=== PATIENT | female | born 2000 | race Caucasian/White ===

== ENCOUNTER 2018-06-16 17:21 | Inpatient (IN) | payer BC, MEDICAID ==
--- NOTE | 2018-06-16 17:46 | ED ---
Psychiatric Complaint - HPI Summary HPI Summary: This pt is a 18 y/o female presenting to [facility] c/o depression, worsening over the past few weeks. Pt states that she has been "sad" for a long time now. Pt admits to SI thoughts. Denies SI plan, HI thoughts/plan. Denies any recent stressors. Pt states she has been sleeping more than usual. She has been eating a bit less lately as pt is getting over the flu. Pt admits to drug and alcohol use. The last time she drank alcohol was 2 days ago. Pt states she smokes marijuana almost every day. Additionally yesterday pt used Adderall and Vyvanse and the day before she used Xanax and cocaine. Denies any PMHx. Pt is not on any medications. - History Of Current Complaint Chief Complaint: [facility]MentalHealth Time Seen by Provider: 06/16/18 17:39 Hx Obtained From: Patient Onset/Duration: Lasting Weeks, Still Present, Worse Since - the last few weeks Timing: Weeks Severity Currently: Moderate Character: Depressed Aggravating Factor(s): Nothing Alleviating Factor(s): Nothing Has Suicidal: Reports: Thoughts. Denies: With A Plan Has Homicidal: Denies: Thoughts, With A Plan - Allergies/Home Medications Allergies/Adverse Reactions: Allergies Allergy/AdvReac Type Severity Reaction Status Date / Time No Known Allergies Allergy Verified 06/16/18 17:29 Home Medications: Home Medications Azithromyxin YOAN (NF) [Z-Yoan (Zithromax) 250 mg tabs #6] 2 tab PO .TODAY, THEN 1 DAILY 06/16/18 [History Confirmed 06/16/18] PMH/Surg Hx/FS Hx/Imm Hx Respiratory History: Denies: Hx Asthma Sensory History: Denies: Hx Contacts or Glasses, Hx Hearing Aid Opthamlomology History: Denies: Hx Contacts or Glasses - Surgical History Surgery Procedure, Year, and Place: [place] teeth removal. Surgery on eyelids Infectious Disease History: No Infectious Disease History: Denies: Traveled Outside the [place] in Last 30 Days - Family History Family History: FHx of migraines. - Social History Alcohol Use: Occasionally Substance Use Type: Reports: Cocaine, Marijuana Substance Use Comment - Amount & Last Used: Adderall, Xanax Smoking Status (MU): Never Smoked Tobacco Review of Systems Negative: Fever, Chills Cardiovascular: Negative Respiratory: Negative Gastrointestinal: Negative Genitourinary: Negative Psychological: Other - POS: SI thoughts Positive: Depressed. Negative: Other - NEG: SI plan, HI thoughts/plan All Other Systems Reviewed And Are Negative: Yes Physical Exam - Summary Physical Exam Summary: VITAL SIGNS: Reviewed. GENERAL: Patient is a well-developed and nourished female who is lying comfortable in the stretcher. Patient is not in any acute respiratory distress. HEAD AND FACE: No signs of trauma. No ecchymosis, hematomas or skull depressions. No sinus tenderness. EYES: PERRLA, EOMI x 2, No injected conjunctiva, no nystagmus. EARS: Hearing grossly intact. Ear canals and tympanic membranes are within normal limits. MOUTH: Oropharynx within normal limits. NECK: Supple, trachea is midline, no adenopathy, no JVD, no carotid bruit, no c- spine tenderness, neck with full ROM. CHEST: Symmetric, no tenderness at palpation LUNGS: Clear to auscultation bilaterally. No wheezing or crackles. CVS: Regular rate and rhythm, S1 and S2 present, no murmurs or gallops appreciated. ABDOMEN: Soft, non-tender. No signs of distention. No rebound, no guarding, and no masses palpated. Bowel sounds are normal. EXTREMITIES: FROM in all major joints, no edema, no cyanosis or clubbing. NEURO: Alert and oriented x 3. No acute neurological deficits. Speech is normal and follows commands. SKIN: Dry and warm Triage Information Reviewed: Yes Vital Signs On Initial Exam: Initial Vitals Temp Pulse Resp BP Pulse Ox 98.7 F 105 16 156/90 97 06/16/18 17:22 06/16/18 17:22 06/16/18 17:22 06/16/18 17:22 06/16/18 17:22 Vital Signs Reviewed: Yes Diagnostics - Vital Signs Vital Signs Temp Pulse Resp BP Pulse Ox 06/16/18 17:22 98.7 F 105 16 156/90 97 - Laboratory Result Diagrams: 06/16/18 18:05 06/16/18 18:05 Lab Statement: Any lab studies that have been ordered have been reviewed, and results considered in the medical decision making process. Re-Evaluation - Re-Evaluation First Eval Re-Evaluation Time: 17:46 Comment: Pt is medically cleared. Course/Dx - Course Assessment/Plan: This pt is a 18 y/o female presenting to [facility] c/o depression, worsening over the past few weeks. Pt states that she has been "sad" for a long time now. Pt admits to SI thoughts. Denies SI plan, HI thoughts/plan. Denies any recent stressors. Pt states she has been sleeping more than usual. She has been eating a bit less lately as pt is getting over the flu. Pt admits to drug and alcohol use. The last time she drank alcohol was 2 days ago. Pt states she smokes marijuana almost every day. Additionally yesterday pt used Adderall and Vyvanse and the day before she used Xanax and cocaine. Denies any PMHx. Pt is not on any medications. Blood work w/o significant abnormality. She is medically cleared. She is awaiting for a MHE. Patient is hemodynamically stable and A+O x 3. Shell be signed out to Dr. Klein, the next ER attending, pending MHE and disposition. - Differential Dx/Clinical Impression Differential Diagnosis/HQI/PQRI: Positive: Anxiety, Depression, Suicidal Ideation Provider Diagnosis: Depression Discharge - Sign-Out/Discharge Documenting (check all that apply): Sign-Out Patient Signing out patient TO: Eliza Klein - pending MHE - Discharge Plan Condition: Stable Referrals: Fer Finney MD [Medical Doctor] - - Billing Disposition and Condition Condition: STABLE - Attestation Statements Document Initiated by Scribe: Yes Documenting Scribe: Alicia Spicer Provider For Whom Tom is Documenting (Include Credential): Bryan Dover MD Scribe Attestation: Alicia Sibley, scribed for Bryan Dover MD on 06/16/18 at 1855. Scribe Documentation Reviewed: Yes Provider Attestation: The documentation as recorded by the Alicia tian accurately reflects the service I personally performed and the decisions made by me, Bryan Dvoer MD
[2018-06-16 18:22] LABS: ABS Basophils 0 10^3/ul (0-0.2); ABS Eosinophils 0.1 10^3/ul (0-0.6); ABS Lymphocytes 1.8 10^3/ul (1.0-4.8); ABS Monocytes 0.6 10^3/ul (0-0.8); ABS Neutrophils 4.9 10^3/ul (1.5-7.7); ABS Nucleated RBC 0 10^3/ul; Eosinophil % 1.1 % (0-6); Hematocrit 41 % (35-47); Hemoglobin 14.1 g/dl (12.0-16.0); Lymphocyte % 24.3 % (25-47); Mean Corpuscular HGB Conc 34 g/dl (31-36); Mean Corpuscular Hemoglobin 31 pg (27-31); Mean Corpuscular Volume 90 fL (80-97); Mean Platelet Volume 6.5 fL (7.4-10.4); Nucleated Red Blood Cells % 0; Platelet Count 399 10^3/ul (150-450); Red Cell Distribution Width 13 % (10.5-15); White Blood Count 7.5 10^3/ul (3.5-10.8)
[2018-06-16 18:51] LABS: EGFR Non-African American 118.3 (>60)
[2018-06-16 18:54] LABS: Urine Color Yellow
[2018-06-16 18:55] LABS: Urine Appearance Clear; Urine Blood Negative (Negative); Urine Ketones Negative (Negative); Urine Protein 1+(30 mg/dL) (Negative); Urine Specific Gravity 1.035 (1.010-1.030); Urine Urobilinogen Negative (Negative)
--- NOTE | 2018-06-16 19:05 | ED ---
Re-Evaluation - Re-Evaluation First Eval Re-Evaluation Time: 17:46 Comment: Pt is medically cleared. Course/Dx - Diagnoses Provider Diagnoses: Substance induced mood disorder - Provider Notifications Discussed Care Of Patient With: Cachorro Casarez Time Discussed With Above Provider: 00:15 Instructed by Provider To: Other - Per AMBER Garcia, pt to be admitted to [facility]; involuntary status with dx substance induced mood disorder. Discharge - Sign-Out/Discharge Documenting (check all that apply): Patient Departure - admit, Receiving Sign- Out Receiving patient FROM: Bryan Dover - Discharge Plan Condition: Stable Disposition: PSYCHIATRIC FACILITY-[facility] Referrals: Fer Finney MD [Medical Doctor] - - Attestation Statements Document Initiated by Scribe: Yes Documenting Scribe: Christopher Hinds Provider For Whom Scribe is Documenting (Include Credential): Dr. Eliza Klein MD Scribe Attestation: Christopher Sibley, scribed for Dr. Eliza Klein MD on 06/17/18 at 0014.
[2018-06-17] MEDS ORDERED: chlorproMAZINE TAB* 50 MG PO PRN (00:05)
[2018-06-17] MEDS ORDERED: Al Hydrox/Mg Hydrox/Simet LIQ* 30 ML UDC PO PRN (01:54)
[2018-06-17] MEDS ORDERED: Nicotine GUM* 2 MG PO PRN (01:54)
[2018-06-17] MEDS ORDERED: Mouth Piece, Nicotine* 1 EACH CARTRIDGE INH SCH (01:54)
[2018-06-17] MEDS ORDERED: Acetaminophen TAB* 325 MG PO PRN (01:54)
[2018-06-17] MEDS ORDERED: Nicotine Inhaler* 10 MG AMP INH PRN (01:54)
[2018-06-17] MEDS: Vitamin THERAPEUTIC TAB PO SCH (08:53)
[2018-06-17] MEDS ORDERED: diPHENhydraMINE PO* 50 MG PO PRN (11:26)
[2018-06-17] MEDS: FLUoxetine CAP* 20 MG PO SCH (13:20)
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
[2018-06-18] MEDS: FLUoxetine CAP* 20 MG PO SCH (09:17)
[2018-06-18] MEDS: Vitamin THERAPEUTIC TAB PO SCH (09:17)
--- NOTE | 2018-06-18 15:29 | PN ---
Subjective - Subjective Date of Service: 06/18/18 Service Type: 71543 Hosp care 15 min low complexity Subjective: Patient reports feeling "a lot better!" Patient reports initial nausea and brief period of blurry vision yesterday, denies side effects today. He reports gaining much from admission due to programming. 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 He reports sleeping well last night. Patient states that his boyfriend has visited and is supportive. Patient denies urges or cravings to use substances. He states intent to avoid "alliance party drugs" and decrease use of marijuana. Objective - Appearance Appearance: Well Developed/Nourished Dysmorphic Features: Yes Hygiene: Normal Grooming: Well Kept - Behavior Psychomotor Activities: Normal Exhibits Abnormal Movement: No - Attitude and Relatedness Attitude and Relatedness: Cooperative Eye Contact: Good - Speech Quality: Unpressured Latencies: Normal Quantity: Appropriate - Mood Patient's Decription of Mood: "better" - Affect Observed Affect: Good Affect Consistent with: Euthymia - Thought Process Patient's Thought Process: Coherent, Goal Directed Thought Content: Yes Passive Wish, No Suicidal Planning, No Homicidal Ideation, No Paranoid Ideation - Sensorium Experiencing Hallucinations: No, Sensorium is Clear Type of Hallucinations: Visual: No, Auditory: No, Command: No - Level of Consciousness Level of Consciousness: Alert Orientation: Yes Intact, Yes Orientated to Time, Yes Orientated to Place, Yes Orientated to Person - Impulse Control Impulse Control: Intact - Insight and Judgement Insight and Judgement: Fair - Group Participation Particating in Group Activities: Yes - Medication Management Medication Management Adherence: Yes Assessment - Assessment Merits Inpatient Hospitalization: For Immediate Safety, For Stabilization, For Discharge Planning Inpatient DSM-V Dx: F33.1 Clinical Impression: 18yo white transgendered female to male, domiciled, employed who presented to ED with reports of increased depression and suicidal ideation. He has been engaging in much substance use including marijuana, cocaine, LSD and prescription medications. He is agreeable to inpatient psychiatric treatment and gives consent to start an SSRI. His insight into impact of substance use is poor at this time. Patient merits hospitalization for immediate safety and stabilization. MHU: Problem List - Patient Problems (1) MDD (major depressive disorder), recurrent episode, moderate Current Visit: Yes Status: Acute Priority: High Code(s): F33.1 - MAJOR DEPRESSIVE DISORDER, RECURRENT, MODERATE SNOMED Code(s): 601753770 Comment: continue milieu programming and trial SSRI Plan - Plan Treatment Plan: Name: CLARK ALLISON Birthdate: 2000 [id number] continue acute intensive psychiatric treatment. may decrease to q30min observation and allow staff pass. continue fluoxetine. dc planning to include referrals to outpatient providers. Continued Medication Management: Start Medication Medications: Current Medications Acetaminophen (Tylenol Tab*) 650 mg PO Q4H PRN PRN Reason: PAIN or TEMP > 101 F Al Hydrox/Mg Hydrox/Simethicone (Maalox Plus*) 30 ml PO Q4H PRN PRN Reason: INDIGESTION Chlorpromazine HCl (Thorazine Tab*) 50 mg PO ONCE PRN PRN Reason: ANXIETY/AGITATION Device (Nicotine Mouth Piece*) 1 each INH .[facility] Last Admin: 06/17/18 08:10 Dose: 1 each Diphenhydramine HCl (Benadryl Po*) 50 mg PO BEDTIME PRN PRN Reason: INSOMNIA Fluoxetine HCl (Prozac Cap*) 20 mg PO DAILY [facility] Last Admin: 06/18/18 09:17 Dose: 20 mg Multivitamins (Theragran Tab*) 1 tab PO DAILY [facility] Last Admin: 06/18/18 09:17 Dose: 1 tab Nicotine (Nicotine Inhaler*) 10 mg INH Q2H PRN PRN Reason: CRAVING Last Admin: 06/17/18 08:10 Dose: 10 mg Nicotine Polacrilex (Nicotine Gum*) 2 mg PO Q2H PRN PRN Reason: CRAVING - Discharge Plan Discharge Plan: Outpatient Follow Up Outpatient Program: [facility]
[2018-06-19 08:05] VITALS: BP 115/68
[2018-06-19] MEDS: FLUoxetine CAP* 20 MG PO SCH (09:37)
[2018-06-19] MEDS: Vitamin THERAPEUTIC TAB PO SCH (09:37)
--- NOTE | 2018-06-20 09:04 | DS ---
CC: [facility].* DISCHARGE SUMMARY: DATE OF ADMISSION: 06/17/18 DATE OF DISCHARGE: 06/19/18 SUPERVISING PSYCHIATRIST: Dr. Madan Oswald.* (DICTATED BY RUBENS MCWILLIAMS NP) DISCHARGE DIAGNOSES: 1. Major depressive disorder. 2. Amphetamine abuse. 3. Benzodiazepine abuse. 4. Cannabis use disorder. 5. Cocaine abuse. CONDITION AT THE TIME OF DISCHARGE: Improved. The patient is euthymic with bright affect. He has been increased to 30 minute observation and been safe on all checks. He reports much improvement in mood and sleep. He denies suicidal ideations. We discussed safety planning and medication safety. He reports desire for discharge today. He is agreeable to follow up with outpatient mental health. He has also been given information about primary care referral and encouraged to call the MHU if he has any questions after discharge. The patient declines offer of referrals for substance use treatment. He declines offer of medications for substance use. He states he intends to decrease marijuana use and abstain from "green party drugs." MENTAL STATUS EXAM: Wesley is a transgender female to male, who is noted to have mild facial hair. He is well groomed and wearing his own casual clothing. The patient has good posture and is cooperative with interview. The patient is alert and oriented x3. Eye contact is good. Speech is soft and articulate. Mood is euthymic with bright affect. No abnormal psychomotor activity noted. Thought process is logical, goal-directed and coherent. Thought content is negative for suicidal ideation. The patient denies intrusive images, AH, VH, or delusions. Insight and judgement are good and that he has stabilized on the psychiatric unit and wishes to return home with his support network. The patient appears to have an average intelligence as evidenced by educational attainment and vocabulary. INSTRUCTIONS GIVEN TO THE PATIENT: A. Medications: Fluoxetine 20 mg p.o. daily. This is electronically prescribed to . B. Diet is regular. C. Activity: Ambulation as tolerated. Tobacco cessation was declined by patient. There are no pending labs or diagnostic studies. D. Follow-up care: [facility] with an intake on Friday, at 9:45. The patient was encouraged to establish primary care and given the information for the [facility] referral line. He has also been a patient of [facility] in the past and states understanding of how to follow up should he want to return there. E. Substance use followup. The patient declined offer of referrals for substance use treatment or medication for substance use disorders. HOSPITAL COURSE: Part A: Reason for admission: The patient presented to the emergency department with reports of increased depression, intrusive thoughts of suicide and polysubstance use. While in the emergency department, he had blood work done. CBC was grossly unremarkable. CMP within normal limits. TSH 1.0. Urinalysis within normal limits. Toxicology positive for amphetamines, benzodiazepines, cocaine, and cannabinoids. Negative for salicylates, acetaminophen, or alcohol. Part B: Psychiatric treatment rendered: The patient was admitted to adult behavioral services unit on voluntary status. Code status is full. He was placed on 15-minute checks for safety and this was decreased to 30-minute observation. The patient participated in supportive milieu, psycho-educational groups and individual sessions with staff. He completed an MMPI, which endorsed depressive disorder. Please see consultation report by a psychologist , Dr. Beny Lam. The patient was agreeable to try an antidepressant and was started on fluoxetine 20 mg. He reported mild nausea and blurry vision after first dose, denied any side effects after that time. The patient was receptive to therapeutic information and suggestions. 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 The patient was visited by his boyfriend who was noted to be supportive. At the time of discharge, risks for harm to self was lessened due to stabilization. Due to obligation to treat in least restrictive setting, the patient was prepared for discharge. RUBENS MCWILLIAMS, GRACE [id number]/[facility] #: [id number] LIBIA
== END 2018-06-19 12:50 | disposition home or self-care (01) | DRG 751 ==
LOC: ED 17:21 → BSU 06-17 00:05
PROVIDERS: ADMIT Psychiatry & Neurology Psychiatry; ATTEND Psychiatry & Neurology Psychiatry
DX: F33.1 Major depressive disorder, recurrent, moderate (principal); R45.851 Suicidal ideations; F64.9 Gender identity disorder, unspecified; G47.00 Insomnia, unspecified; F14.10 Cocaine abuse, uncomplicated; F12.10 Cannabis abuse, uncomplicated; F15.10 Other stimulant abuse, uncomplicated; F19.10 Other psychoactive substance abuse, uncomplicated; F16.10 Hallucinogen abuse, uncomplicated; Z72.89 Other problems related to lifestyle; Z87.890 Personal history of sex reassignment; Z72.0 Tobacco use
CPT/HCPCS: 36415; 80053; 80061; 80307; 80320; 80329; 81003; 81015; 83036; 84443; 85025; 99222; 99231; 99238; 99284; A9270-GY; G0480

== ENCOUNTER → 2018-07-22 13:20 | Emergency (ER) | payer MEDICAID, OTHER ==
[2018-07-22 14:03] LABS: ABS Basophils 0 10^3/ul (0-0.2); ABS Eosinophils 0.1 10^3/ul (0-0.6); ABS Lymphocytes 1.5 10^3/ul (1.0-4.8); ABS Monocytes 0.6 10^3/ul (0-0.8); ABS Neutrophils 3.8 10^3/ul (1.5-7.7); ABS Nucleated RBC 0 10^3/ul; Eosinophil % 1.1 %; Hematocrit 41 % (35-47); Hemoglobin 14.1 g/dl (12.0-16.0); Lymphocyte % 25.1 %; Mean Corpuscular HGB Conc 35 g/dl (31-36); Mean Corpuscular Hemoglobin 31 pg (27-31); Mean Corpuscular Volume 90 fL (80-97); Mean Platelet Volume 6.8 fL (7.4-10.4); Nucleated Red Blood Cells % 0.1; Platelet Count 277 10^3/ul (150-450); Red Blood Count 4.55 10^6/ul (4.00-5.40); Red Cell Distribution Width 13 % (10.5-15)
--- OUTSIDE RECORDS SUMMARY | 2018-07-22 14:06 | XMS REPORT | Continuity of Care Document ---
:2000 External Reference #:[id number] Author Name Gilberto Kat Care Team Providers Name Role Phone James Maza M.D. Care Team Information Vacation Guide Unavailable Payers Type Date Identification Numbers Payment Provider Subscriber Policy Number: [id number] Medicaid [place] Wesley Nava PayID: [id number] [address] [place] [address] Advance Directives Description No Information Available Problems Date Description Provider Status Onset: 07/08/2018 Nchafs-ta-glda transsexual ARCADIO Kurtz Active Family History Date Family Member(s) Problem(s) Comments Father A&W Mother A&W Children None Siblings 1 First Sister A&W Paternal Grandfather due to Unknown Causes () Paternal Grandmother A&W Maternal Grandfather Prostate Cancer Maternal Grandmother Multiple Sclerosis (MS) Maternal Grandmother Diabetes Social History Type Date Description Comments Sex Unknown Education Highest level completed, 12th grade Marital Status but Lives With Boyfriend Boyfriends Mom and siblings Pets 1 dog Pets several cats Cigarette Use Former Cigarette Smoker 2 years on and off 1/2 Pack Daily ETOH Use Alcohol Use Prior To 2 per week Recreational Drug Use Formerly used Marijuana occ LSD, cocaine, regularly adderall, xanax Tobacco Use Start: Unknown Patient is a former End: Unknown smoker Smoking Status Reviewed: 07/08/18 Patient is a former smoker Exercise Type/Frequency Exercises sporadically Seat Belt/Car Seat Always uses seat belt Currently Active Patient is currently sexually active Contraceptive Methods None STD's Chlamydia Allergies, Adverse Reactions, Alerts Description No Known Drug Allergies Medications Medication Date Status Form Strength Qnty SIG Indications Ordering Provider Prozac Active Unknown Vitamins Active Unknown Immunizations Description No Information Available Vital Signs Date Vital Result Comment 07/08/2018 10:46am BP Systolic 108 mmHg BP Diastolic 68 mmHg Height 67 inches 5'7" Weight 138.00 lb BMI (Body Mass Index) 21.6 kg/m2 Last Menstrual Period [id number] 1 Parity 0 Results Description No Information Available Procedures Date Code Description Status 07/08/2018 34033 Echography Pelvic Complete Completed Encounters Description No Information Available Plan of Treatment No Information Available
[2018-07-22 14:13] LABS: Activated Partial Thrombo Time 31.6 seconds (26.0-36.3); INR 0.94 (0.77-1.02)
[2018-07-22 14:20] LABS: Albumin 4.4 g/dL (3.2-5.2); Albumin/Globulin Ratio 1.7 (1-3); BUN/Creatinine Ratio 8.6 (8-20); C Reactive Protein 1.75 mg/L (<8.01); Calcium 9.3 mg/dL (8.6-10.3); EGFR Non-African American 132.5 (>60); Globulin 2.6 g/dL (2-4); Potassium 3.6 mmol/L (3.5-5.0); Total Bilirubin 0.4 mg/dL (0.2-1.0)
--- NOTE | 2018-07-22 15:07 | ED ---
GI/ HPI - HPI Summary HPI Summary: Patient presents with and identifies as male. He reports he believes he conceived in June 2018 and has not had a period since. He has been following with a local [facility] and hCG levels have been increasing. Had an ultrasound in their office today which revealed a "blood sac" through the pelvic view. Transvaginal view was unable to attain due to a tipped uterus. They're concerned about possible ectopic . Patient reports mild lower pelvic cramping however denies mercedez pain, back pain, spotting, bleeding, vaginal discharge, fever, chills. Patient admits to fatigue and recently some mild nausea however denies vomiting. Has had mild constipation as well as increased urinary frequency without dysuria. He's been taking vitamins with DHA/EPA all along as this was planned. Has cut back on smoking marijuana however does still smoke occasionally. Does not smoke cigarettes or drink alcohol and denies other illicit drug use. Feels safe at home. NOTE: History of chlamydia. This was treated and retested through [facility]. Patient reports he did not hear any results back from [facility] so assumed retest was negative however will call today to verify. - History of Current Complaint Chief Complaint: EDOBProblems Time Seen by Provider: 07/22/18 13:41 Stated Complaint: FAMILY PLANNING Hx Obtained From: Patient, Family/Glass Beveller - partner Pain Intensity: 1 - Additional Pertinent History Primary Care Physician: Dr. Finney, [facility] - Allergy/Home Medications Allergies/Adverse Reactions: Allergies Allergy/AdvReac Type Severity Reaction Status Date / Time No Known Allergies Allergy Verified 06/16/18 17:29 PMH/Surg Hx/FS Hx/Imm Hx Previously Healthy: Yes Endocrine/Hematology History: Denies: Hx Anticoagulant Therapy, Hx Blood Disorders, Hx Anemia Respiratory History: Denies: Hx Asthma Sensory History: Denies: Hx Contacts or Glasses, Hx Hearing Aid Opthamlomology History: Denies: Hx Contacts or Glasses Psychiatric History: Reports: [facility]x [facility] Denies: Other Psychiatric Issues/Disorders - Surgical History Surgery Procedure, Year, and Place: [place] teeth removal. Surgery on eyelids Infectious Disease History: No Infectious Disease History: Denies: Traveled Outside the [place] in Last 30 Days - Family History Family History: FHx of migraines. 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 Negative: Fever, Chills Cardiovascular: Negative Respiratory: Negative Positive: Nausea. Negative: Abdominal Pain, Vomiting, Diarrhea Positive: see HPI Musculoskeletal: Negative Skin: Negative Neurological: Negative Psychological: Normal All Other Systems Reviewed And Are Negative: Yes Physical Exam Triage Information Reviewed: Yes Vital Signs On Initial Exam: Initial Vitals Temp Pulse Resp BP Pulse Ox 98.0 F 73 18 114/65 98 07/22/18 13:29 07/22/18 13:29 07/22/18 13:29 07/22/18 13:29 07/22/18 13:29 Vital Signs Reviewed: Yes Appearance: Positive: Well-Appearing - physically presents as male and prefers "he/him", No Pain Distress, Well-Nourished Skin: Positive: Warm, Skin Color Reflects Adequate Perfusion, Dry Head/Face: Positive: Normal Head/Face Inspection Eyes: Positive: Normal, EOMI, Conjunctiva Clear - anicteric sclera ENT: Positive: Normal ENT inspection, Hearing grossly normal, Pharynx normal - mucosa moist Neck: Positive: Supple, Nontender - no gross thyromegaly Respiratory/Lung Sounds: Positive: Clear to Auscultation, Breath Sounds Present Cardiovascular: Positive: Normal, RRR Abdomen Description: Positive: Nontender, No Organomegaly, Soft Bowel Sounds: Positive: Present Pelvic Exam: Positive: Other - deferred Musculoskeletal: Positive: Normal, Strength/ROM Intact Neurological: Positive: Normal, Sensory/Motor Intact, Alert, Oriented to Person Place, Time, CN Intact II-III Psychiatric: Positive: Normal Diagnostics - Vital Signs Vital Signs Temp Pulse Resp BP Pulse Ox 07/22/18 13:29 98.0 F 73 18 114/65 98 - Laboratory Lab Results: Lab Results 07/22/18 07/22/18 07/22/18 Range/Units 13:52 13:52 13:53 WBC 6.0 (3.5-10.8) 10^3/ul RBC 4.55 (4.00-5.40) 10^6/ul Hgb 14.1 (12.0-16.0) g/dl Hct 41 (35-47) % MCV 90 (80-97) fL MCH 31 (27-31) pg MCHC 35 (31-36) g/dl RDW 13 (10.5-15) % Plt Count 277 (150-450) 10^3/ul MPV 6.8 L (7.4-10.4) fL Neut % (Auto) 63.0 % Lymph % (Auto) 25.1 % Bureau % (Auto) 10.3 % Eos % (Auto) 1.1 % Baso % (Auto) 0.5 % Absolute Neuts (auto) 3.8 (1.5-7.7) 10^3/ul Absolute Lymphs (auto) 1.5 (1.0-4.8) 10^3/ul Absolute Monos (auto) 0.6 (0-0.8) 10^3/ul Absolute Eos (auto) 0.1 (0-0.6) 10^3/ul Absolute Basos (auto) 0 (0-0.2) 10^3/ul Absolute Nucleated RBC 0 10^3/ul Nucleated RBC % 0.1 INR (Anticoag Therapy) 0.94 (0.77-1.02) APTT 31.6 (26.0-36.3) seconds Sodium 137 (135-145) mmol/L Potassium 3.6 (3.5-5.0) mmol/L Chloride 106 (101-111) mmol/L Carbon Dioxide 25 (22-32) mmol/L Anion Gap 6 (2-11) mmol/L BUN 5 L (6-24) mg/dL Creatinine 0.58 (0.51-0.95) mg/dL Est GFR ( Amer) 160.4 (>60) Est GFR (Non-Af Amer) 132.5 (>60) BUN/Creatinine Ratio 8.6 (8-20) Glucose 84 (70-100) mg/dL Lactic Acid (0.5-2.0) mmol/L Calcium 9.3 (8.6-10.3) mg/dL Total Bilirubin 0.40 (0.2-1.0) mg/dL AST 14 (13-39) U/L ALT 12 (7-52) U/L Alkaline Phosphatase 51 (34-104) U/L C-Reactive Protein 1.75 (<8.01) mg/L Total Protein 7.0 (6.4-8.9) g/dL Albumin 4.4 (3.2-5.2) g/dL Globulin 2.6 (2-4) g/dL Albumin/Globulin Ratio 1.7 (1-3) Beta HCG, Quant 29556.00 mIU/mL Blood Type 07/22/18 07/22/18 Range/Units 13:53 13:53 WBC (3.5-10.8) 10^3/ul RBC (4.00-5.40) 10^6/ul Hgb (12.0-16.0) g/dl Hct (35-47) % MCV (80-97) fL MCH (27-31) pg MCHC (31-36) g/dl RDW (10.5-15) % Plt Count (150-450) 10^3/ul MPV (7.4-10.4) fL Neut % (Auto) % Lymph % (Auto) % Bureau % (Auto) % Eos % (Auto) % Baso % (Auto) % Absolute Neuts (auto) (1.5-7.7) 10^3/ul Absolute Lymphs (auto) (1.0-4.8) 10^3/ul Absolute Monos (auto) (0-0.8) 10^3/ul Absolute Eos (auto) (0-0.6) 10^3/ul Absolute Basos (auto) (0-0.2) 10^3/ul Absolute Nucleated RBC 10^3/ul Nucleated RBC % INR (Anticoag Therapy) (0.77-1.02) APTT (26.0-36.3) seconds Sodium (135-145) mmol/L Potassium (3.5-5.0) mmol/L Chloride (101-111) mmol/L Carbon Dioxide (22-32) mmol/L Anion Gap (2-11) mmol/L BUN (6-24) mg/dL Creatinine (0.51-0.95) mg/dL Est GFR ( Amer) (>60) Est GFR (Non-Af Amer) (>60) BUN/Creatinine Ratio (8-20) Glucose (70-100) mg/dL Lactic Acid 1.2 (0.5-2.0) mmol/L Calcium (8.6-10.3) mg/dL Total Bilirubin (0.2-1.0) mg/dL AST (13-39) U/L ALT (7-52) U/L Alkaline Phosphatase (34-104) U/L C-Reactive Protein (<8.01) mg/L Total Protein (6.4-8.9) g/dL Albumin (3.2-5.2) g/dL Globulin (2-4) g/dL Albumin/Globulin Ratio (1-3) Beta HCG, Quant mIU/mL Blood Type A Positive Result Diagrams: 07/22/18 13:53 07/22/18 13:52 Lab Statement: Any lab studies that have been ordered have been reviewed, and results considered in the medical decision making process. GIGU Course/Dx - Course Course Of Treatment: HCG increased since last draw on 07/13 from 11k to 25k. U/ S: IUP w/ HR of 103 - no signs of ectopic or bleeding. Education about the dangers of smoking marijuana during - offered alternatives to nausea. NOTE: pt spoke w/ PP who confirmed chlamydia retesting is negative - Diagnoses Provider Diagnoses: Discharge - Sign-Out/Discharge Documenting (check all that apply): Patient Departure - Discharge Plan Condition: Stable Disposition: HOME Patient Education Materials: (ED) Referrals: Gaurav Vivas MD [Medical Doctor] - Additional Instructions: Congratulations on your ! Continue taking your vitamins, stay hydrated and avoid unhealthy substances such as excess sugar, marijuana, etc. There are healthy anti-nausea medications you may try for morning sickness as well - see educational handout and inquire at OBGYN if you need additional assistance with this issue. Follow-up with OBGYN - call today to schedule an appointment *If you develop danger signs or symptom return to the ED - Billing Disposition and Condition Condition: STABLE Disposition: Home
[2018-07-22 16:20] VITALS: BP 114/52
== END | disposition home or self-care (01) ==
LOC: ED 13:20
DX: Z34.91 Encounter for supervision of normal pregnancy, unspecified, first trimester (principal); Z87.891 Personal history of nicotine dependence
CPT/HCPCS: 36415; 76817; 80053; 83605; 84702; 85025; 85610; 85730; 86140; 86900; 86901; 99282

== ENCOUNTER 2018-08-25 23:29 | Emergency (ER) | payer MEDICAID, OTHER ==
[2018-08-25 23:58] VITALS: BP 111/62
--- NOTE | 2018-08-26 00:05 | ED ---
- HPI Summary HPI Summary: Pt is a 18 y/o F presenting to the ED with a chief complaint of abd pain. The pt states she miscarried a couple of weeks ago and is still waiting to fully miscarry. The pt has been cramping a lot, no bleeding. The [place] time she was [place] [facility] both ovaries. - History of Current Complaint Chief Complaint: EDAbdPain Stated Complaint: CRAMPING Time Seen by Provider: 08/25/18 23:46 Hx Obtained From: Patient Chief Complaint: Pain Onset/Duration: Started Hours Ago, Still Present Timing: Constant Severity: Moderate Current Severity: Moderate Pain Intensity: 5 Location of Pain: Suprapubic Character: Cramping Aggravating Factors: Nothing Alleviating Factors: Nothing Associated Signs and Symptoms: Negative: Urinary Symptoms, Vaginal Bleeding or Discharge - Additional Pertinent History Primary Care Physician: Dr. Finney, [facility] - Allergies/Home Medications Allergies/Adverse Reactions: Allergies Allergy/AdvReac Type Severity Reaction Status Date / Time No Known Allergies Allergy Verified 08/25/18 23:31 PMH/Surg Hx/FS Hx/Imm Hx Previously Healthy: Yes Endocrine/Hematology History: Denies: Hx Anticoagulant Therapy, Hx Blood Disorders, Hx Anemia Respiratory History: Denies: Hx Asthma History: Reports: Other Problems/Disorders - ovarian cysts Sensory History: Denies: Hx Contacts or Glasses, Hx Hearing Aid Opthamlomology History: Denies: Hx Contacts or Glasses Psychiatric History: Reports: Hx [facility]x - [facility] Denies: Other Psychiatric Issues/Disorders - Surgical History Surgery Procedure, Year, and Place: [place] teeth removal. Surgery on eyelids Infectious Disease History: No Infectious Disease History: Denies: Traveled Outside the [place] in Last 30 Days - Family History Known Family History: Positive: Other - migraines Family History: FHx of migraines. - Social History Alcohol Use: None Alcohol Amount: not since Substance Use Type: Reports: Marijuana, Other Substance Use Comment - Amount & Last Used: h/o benzodiazapines and stimulants Hx Tobacco Use: Yes - not currently Smoking Status (MU): Former Smoker Type: Cigarettes Review of Systems Negative: Fever Positive: Abdominal Pain Negative: hematuria All Other Systems Reviewed And Are Negative: Yes Physical Exam - Summary Physical Exam Summary: Appearance: Well-appearing, Well-nourished, lying in bed comfortably Skin: Warm, dry, no obvious rash Eyes: sclera anicteric, no conjunctival pallor ENT: mucous membranes moist, pharynx appears normal Neck: Supple, nontender Respiratory: Clear to auscultation, no signs of respiratory distress Cardiovascular: Normal S1, S2. No murmurs. Normal distal pulses in tibial and radial bilaterally. Abdomen: Soft, nontender, normal active bowel sounds present Musculoskeletal: Normal, Strength/ROM Intact Neurological: A&Ox3, awake and alert, mentation is normal, speech is fluent and appropriate Psychiatric: affect is normal, does not appear anxious or depressed - Physical Exam Triage Information Reviewed: Yes Vital Signs Reviewed: Yes Diagnostics - Vital Signs Vital Signs Temp Pulse Resp BP Pulse Ox 08/25/18 23:43 82 99 08/25/18 23:42 85 111/62 99 08/25/18 23:31 97.6 F 111 16 102/63 99 - Laboratory Lab Statement: Any lab studies that have been ordered have been reviewed, and results considered in the medical decision making process. Course/Dx - Course Course Of Treatment: Pt is a 18 y/o F presenting to the ED with a chief complaint of abd pain. The pt states she miscarried a couple of weeks ago and is still waiting to fully miscarry. The pt has been cramping a lot, no bleeding. The last time she was at [facility] found cysts on both ovaries. 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 - Differential Diagnosis/HQI/PQRI: Incomplete - Diagnoses Provider Diagnoses: Miscarriage, Incomplete Discharge - Sign-Out/Discharge Documenting (check all that apply): Patient Departure - home - Discharge Plan Condition: Good Disposition: HOME Patient Education Materials: Miscarriage (ED) Referrals: Gaurav Vivas MD [Medical Doctor] - 1 Day Additional Instructions: You will need to touch base with Dr. Vivas's office in the morning to see about having a D&C. You do not appear to be having any of the bleeding or infection consequences of an incomplete miscarriage, but if you start getting more severe pain or heavy, persistent bleeding come back and see us or contact Dr. Vivsa's service. - Billing Disposition and Condition Condition: GOOD Disposition: Home - Attestation Statements Document Initiated by Ansleyibyordy: Yes Documenting Scribe: Sherrie Charles Provider For Whom Tom is Documenting (Include Credential): Parish Rhodes MD. Scribe Attestation: Sherrie Sibley, scribed for Parish Rhodes MD. on 08/26/18 at 0222. Scribe Documentation Reviewed: Yes Provider Attestation: The documentation as recorded by the ansleyibe, Sherrie Charles accurately reflects the service I personally performed and the decisions made by me, Parish Rhodes MD. Status of Scribe Document: Viewed
== END 2018-08-26 00:15 | disposition home or self-care (01) ==
LOC: ED 23:29
DX: O03.4 Incomplete spontaneous abortion without complication (principal); Z87.891 Personal history of nicotine dependence
CPT/HCPCS: 99282

== ENCOUNTER 2018-08-28 05:53 | Day surgery (SDC) | payer MEDICAID ==
[~2018-08-28 05:53] MED LIST: Buffered Lidocaine 1% SYRIN* 1 ML/SYRINGE INTRADERM ONE; Lactated Ringers 1000 ML Bag* 1,000 ML IV SCH
[2018-08-28] MEDS ORDERED: Buffered Lidocaine 1% SYRIN* 1 ML/SYRINGE INTRADERM ONE ×2 (06:45)
[2018-08-28 07:12] LABS: ABS Basophils 0 10^3/ul (0-0.2); ABS Eosinophils 0.1 10^3/ul (0-0.6); ABS Lymphocytes 1.9 10^3/ul (1.0-4.8); ABS Monocytes 0.6 10^3/ul (0-0.8); ABS Neutrophils 4.6 10^3/ul (1.5-7.7); ABS Nucleated RBC 0 10^3/ul; Eosinophil % 0.9 %; Hematocrit 39 % (35-47); Hemoglobin 13.3 g/dl (12.0-16.0); Lymphocyte % 26.3 %; Mean Corpuscular HGB Conc 34 g/dl (31-36); Mean Corpuscular Hemoglobin 31 pg (27-31); Mean Corpuscular Volume 89 fL (80-97); Nucleated Red Blood Cells % 0.1; Platelet Count 233 10^3/ul (150-450); Red Blood Count 4.37 10^6/ul (4.00-5.40); Red Cell Distribution Width 13 % (10.5-15); White Blood Count 7.3 10^3/ul (3.5-10.8)
[2018-08-28] MEDS ORDERED: Midazolam* 1 MG/ML 5 ML VIAL (5 MG) ONE ×2 (07:27)
[2018-08-28] MEDS ORDERED: fentaNYL* 50 MCG/ML 2 ML VIAL (100 MCG VIAL) ONE ×2 (07:27)
[2018-08-28] MEDS ORDERED: Ondansetron INJ* 2 MG/ML VIAL ONE ×2 (07:28)
[2018-08-28] MEDS ORDERED: Chloroprocaine 2%* 20 ML VIAL ONE ×2 (07:55)
[2018-08-28] MEDS ORDERED: Lidocaine 2% PF * 5 ML VIAL ONE ×2 (07:55)
[2018-08-28] MEDS ORDERED: Propofol* 10 MG/ML 20 ML BTL ONE ×2 (07:55)
[2018-08-28] MEDS ORDERED: Ketorolac INJ* 30 MG/ML 1 ML VIAL ONE ×2 (07:56)
[2018-08-28] MEDS ORDERED: Naloxone* 0.4 MG/ML 1 ML VIAL IV PRN (08:12)
[2018-08-28] MEDS ORDERED: Acetaminophen TAB* 325 MG PO PRN (08:12)
[2018-08-28 09:12] VITALS: BP 101/49
[2018-08-28] MEDS ORDERED: Acetaminophen TAB* 325 MG ONE ×2 (09:27)
--- NOTE | 2018-09-01 21:41 | OP ---
OPERATIVE REPORT: DATE OF OPERATION: 08/28/18. DATE OF : [birth year]. SURGEON: Gaurav Vivas MD ANESTHESIA: Spinal. PRE-OP DIAGNOSIS: Missed in the first trimester. POST-OP DIAGNOSIS: Missed in the first trimester. OPERATIVE PROCEDURE: Dilation and evacuation with suction curettage. ESTIMATED BLOOD LOSS: Less than 5 cc. SPECIMEN SENT TO PATHOLOGY: Endometrial curettings and products of conception. FLUIDS: She received 1 L of IV crystalloid fluid. OUTPUT: Her urine output was clear and total of 20 cc. FINDINGS: On exam under anesthesia, the patient was revealed to have a cervix that was about 0.5 cm dilated. The uterus sounded to 8 cm in anteverted position and there were moderate amount of product s of conception removed from the uterus. DESCRIPTION OF PROCEDURE: The patient was taken to the operating room where she was identified. She was placed on the operating table, where a spinal anesthesia was obtained without difficulty. She w as then placed in the dorsal lithotomy position, prepped and draped in a normal sterile fashion. Att ention was then brought onto the patient's perineum where the bladder was catheterized and drained of clear urine, after which a weighted speculum was inserted into the patient's vagina. The cervix was identified, grasped with a single-tooth tenaculum. The uterus was then sounded and was noted to be in an anteverted position. Hegar dilators were then used to dilate the cervix, after which an 8 mm c urved suction curette was introduced to the cervix up to the fundus of the uterus, attached to suctio n and suction curettage was performed. Once the uterus was deemed to be empty with a suction curetta ge, a sharp curettage was performed to confirm this and indeed it felt empty. At this point, all the instruments were removed from the patient's vagina. Sponge, lap, needle counts were correct x2. Th e patient was taken to recovery room area in stable condition after she tolerated the procedure well. [id number]/[facility] #: [id number]
== END 2018-08-28 10:30 | disposition home or self-care (01) ==
LOC: OR 05:53
PROVIDERS: ATTEND Obstetrics & Gynecology
DX: O02.1 Missed abortion (principal); F41.8 Other specified anxiety disorders; Z87.891 Personal history of nicotine dependence
CPT/HCPCS: 36415; 85025; 86850; 86900; 86901; 88305; A9270-GY; J1885; J2250; J2400; J2405; J2704; J3010

== ENCOUNTER 2018-10-05 19:35 | Emergency (ER) | payer MEDICAID ==
--- OUTSIDE RECORDS SUMMARY | 2018-10-05 19:41 | XMS REPORT | Continuity of Care Document ---
:2000 External Reference #:[id number] Author Name Cari Olvera Care Team Providers Name Role Phone Ramila Schroeder DO Care Team Information Commodity Specialist Unavailable Payers Date Identification Numbers Payment Provider Subscriber Policy Number: [id number] Medicaid Wesley Nava Group Name: 1 1 [address] PayID: [id number] [place] [address] Advance Directives Description No Information Available Problems Description No Information Family History Description No Information Available Social History Type Date Description Comments Sex Unknown Tobacco Use Reviewed: 09/22/18 Patient is a current smoker, smokes E Cigarette every day Smoking Status Reviewed: 09/22/18 Patient is a current smoker, smokes E Cigarette every day Allergies, Adverse Reactions, Alerts Description No Known Drug Allergies Medications Medication Date Status Form Strength Qnty SIG Indications Ordering Provider Fluoxetine HCL 09/22/19 Active Tablets 20mg 30tabs 1 by F32.9 Ramila (PMDD) 19 mouth DO Alexandre every day Prozac 0000/ Active Capsules 20mg 1 by Unknown 00 mouth every day Immunizations Description No Information Available Vital Signs Date Vital Result Comment 09/22/2018 3:51pm Height 68 inches 5'8" Weight 146.50 lb Heart Rate 76 /min BP Systolic Sitting 100 mmHg reg adult cuff left arm BP Diastolic Sitting 70 mmHg reg adult cuff left arm Respiratory Rate 16 /min O2 % BldC Oximetry 99 % at rest on room air BMI (Body Mass Index) 22.3 kg/m2 Results Description No Information Available Procedures Description No Information Available Encounters Description No Information Available Plan of Treatment Future Appointment(s):10/20/2018 3:20 pm - Ramila Schroeder DO at [facility]09/22/2018 - Ramila Schroeder DOF32.9 Major depressive disorder, single episode, unspecifiedNew Medication:Fluoxetine HCL (PMDD) 20 mg - 1 by mouth every dayFollow up:come back in one month
[2018-10-05 19:49] VITALS: BP 97/59
[2018-10-05] MEDS ORDERED: Acetaminophen TAB* 325 MG PO ONE (20:16)
--- NOTE | 2018-10-05 20:20 | UC ---
Head Injury HPI - HPI Summary HPI Summary: 18-year-old female comes in with a chief complaint of head injury. Last knee evening slipped and fell and struck the back of the head. Patient was drinking alcohol time. No vomiting. Patient did have nausea today. Nausea is gone now. No change in vision or speech. Patient's been having a moderate to severe headache all day that is circumferential. Denies any other injuries. Patient's partner is here and reports that the patient has been having difficulties with remembering things today. - History Of Current Complaint Chief Complaint: UCHeadInjury Stated Complaint: HEAD INJURY Time Seen by Provider: 10/05/18 20:05 Pain Intensity: 6 - Allergies/Home Medications Allergies/Adverse Reactions: Allergies Allergy/AdvReac Type Severity Reaction Status Date / Time No Known Allergies Allergy Verified 10/05/18 19:49 PMH/Surg Hx/FS Hx/Imm Hx Previously Healthy: Yes Other History Of: Negative For: Anticoagulant Therapy - Surgical History Surgical History: Yes Surgery Procedure, Year, and Place[place] [id number] [id number] [place] History Known Family History: Positive: Other - migraines Family History: FHx of migraines. - Social History Alcohol Use: Weekly Alcohol Amount: not since Substance Use Type: Marijuana Substance Use Comment - Amount & Last Used: DAILY Smoking Status (MU): Heavy Every Day Tobacco Smoker Type: Cigarettes, eCigarettes Amount Used/How Often: 6 CIGARETTES PER DAY X OFF AND ON 1-2 YEARS Have You Smoked in the Last Year: Yes When Did the Patient Quit Smoking/Using Tobacco: 04/2018-NOW JUST E-CIGARETTE - Immunization History Most Recent Influenza Vaccination: has not received in the past Most Recent Pneumonia Vaccination: n/a Review of Systems All Other Systems Reviewed And Are Negative: Yes Constitutional: Positive: Negative Skin: Positive: Negative Eyes: Positive: Negative ENT: Positive: Negative Respiratory: Positive: Negative Cardiovascular: Positive: Negative Gastrointestinal: Positive: Nausea Motor: Positive: Negative Neurovascular: Positive: Negative Musculoskeletal: Positive: Negative Neurological: Positive: Negative - GCS 15 Psychological: Positive: Negative Is Patient Immunocompromised?: No Physical Exam Triage Information Reviewed: Yes Appearance: Well-Appearing, No Pain Distress, Well-Nourished Vital Signs: Initial Vital Signs Temp 98.7 F 10/05/18 19:40 Pulse 72 10/05/18 19:40 Resp 16 10/05/18 19:40 BP 97/59 10/05/18 19:40 Pulse Ox 100 10/05/18 19:40 Vital Signs Reviewed: Yes Eye Exam: Normal Eyes: Positive: Conjunctiva Clear ENT: Positive: Pharynx normal, TMs normal - NO HEMOTYMPANUM Neck exam: Normal Neck: Positive: Supple, Nontender Respiratory: Positive: Lungs clear, Normal breath sounds, No respiratory distress Cardiovascular: Positive: RRR Musculoskeletal Exam: Normal Musculoskeletal: Positive: Strength Intact, ROM Intact Neurological Exam: Normal Neurological: Positive: Alert, Muscle Tone Normal Psychological Exam: Normal Psychological: Positive: Normal Response To Family, Age Appropriate Behavior Skin Exam: Normal Head Injury Course/Dx - Course Course Of Treatment: EXAM: CT Head Without Contrast. EXAM DATE/TIME: 2018 8:29 PM. CLINICAL HISTORY: 18 years old, female; Pain and injury or trauma; Fall; Initial encounter;. Blunt trauma (contusions or hematomas); Without loss of consciousness;. Headache; Migraine; Aura effect not specified; Does not respond to medication;. Severity not specified; Injury date: 10/04/2018 ; Injury details: Posterior head. pain with migraine headache after fall on head yesterday. Denies loc no other. symtoms; Prior surgery; Surgery date: 6+ months; Surgery type: Eye lid surgery. 1 year ago; Patient HX: Posterior head pain with migraine headache after fall. on head yesterday. Denies loc, with mild amnesia no other symtoms; Additional. info: Head injury, VELIZ, mild amnesia. TECHNIQUE: Axial computed tomography images of the head/brain without contrast. All CT scans at this facility use at least one of these dose optimization. techniques: automated exposure control; mA and/or kV adjustment per patient. size (includes targeted exams where dose is matched to clinical indication); or. iterative reconstruction. COMPARISON: No relevant prior studies available. FINDINGS: Brain: No acute ischemic changes, extra axial fluid collections,. intraparenchymal hemorrhage, or midline shift. Ventricles : Normal. No ventriculomegaly. Bones/joints: Normal. No acute fracture. Sinuses: Visualized sinuses are normal. No acute sinusitis. Mastoid air cells: Visualized mastoid air cells are normal. No mastoid. effusion. Soft tissues: Normal. IMPRESSION: No traumatic intracranial abnormalities. To contact [facility] with a general question: Operations Center - [phone]. For direct physician to physician contact: Physician Hotline - [phone]. [facility] ([facility] Facility ID #[id number]). End of Report Content . . Attending Doctor: Javed Sun ([id number]). Sound Recordist: Prudence John ([id number]). J2Ee Programmer: Jesús SHOOK ([facility]). Report Date: 10/05/2018 20:13:00. Report Status: Final. Begin of Report Content === . Patient Name: CLARK ALLISON Medical Record#: [id number]. Ordering Physician: Javed Sun MD Acct.#: [id number]. : 2000 Age: 18 Sex: F Location: [facility]. Exam Date: 10/05/182012 ADM Status: REG ER. Order Information: CT BRAIN WO. Accession Number: [id number]. CPT: 67917. EXAM: CT Head Without Contrast. EXAM DATE/TIME: 10/05/2018 8:29 PM. CLINICAL HISTORY: 18 years old, female; Pain and injury or trauma; Fall; Initial encounter;. Blunt trauma (contusions or hematomas); Without loss of consciousness;. Headache; Migraine; Aura effect not specified; Does not respond to medication;. Severity not specified; Injury date: 10/04/2018 ; Injury details: Posterior head. pain with migraine headache after fall on head yesterday. Denies loc no other. symtoms; Prior surgery; Surgery date: 6+ months; Surgery type: Eye lid surgery. 1 year ago; Patient HX: Posterior head pain with migraine headache after fall. on head yesterday. Denies loc, with mild amnesia no other symtoms; Additional. info: Head injury, VELIZ, mild amnesia. TECHNIQUE: Axial computed tomography images of the head/brain without contrast. All CT scans at this facility use at least one of these dose optimization. techniques: automated exposure control; mA and/or kV adjustment per patient. size (includes targeted exams where dose is matched to clinical indication); or. iterative reconstruction. COMPARISON: No relevant prior studies available. FINDINGS: Brain: No acute ischemic changes, extra axial fluid collections,. intraparenchymal hemorrhage, or midline shift. Ventricles : Normal. No ventriculomegaly. Bones/joints: Normal. No acute fracture. Sinuses: Visualized sinuses are normal. No acute sinusitis. Mastoid air cells: Visualized mastoid air cells are normal. No mastoid. effusion. Soft tissues: Normal. IMPRESSION: No traumatic intracranial abnormalities. To contact [facility] with a general question: Operations Center - [phone]. For direct physician to physician contact: Physician Hotline - [phone]. [facility] ([facility] Facility ID #[id number]). . <Electronically signed by Prudence John MD in OV> 10/05/182115. The CT was done due to the continued headache and the memory issues. I discussed the CT report with the patient I discussed the CT report with the patient. Plan is ibuprofen and acetaminophen and rest. Reevaluate if worsening or any questions or concerns. - Differential Dx/Diagnosis Provider Diagnosis: Concussion, Head injury Discharge - Sign-Out/Discharge Documenting (check all that apply): Patient Departure All imaging exams completed and their final reports reviewed: Yes - Discharge Plan Condition: Stable Disposition: HOME Patient Education Materials: Concussion (ED), Head Injury (ED) Referrals: [facility] [place] [Outside] Additional Instructions: FOLLOW UP WITH YOUR DOCTOR IF NOT COMPLETELY IMPROVED. GET RECHECKED FOR ANY WORSENING OF YOUR CONDITION; WEAKNESS, NUMBNESS, CHANGES IN VISION OR SPEECH, YOU FEEL ILL, UNEXPLAINED VOMITING OR QUESTIONS OR CONCERNS. - Billing Disposition and Condition Condition: STABLE Disposition: Home
== END 2018-10-05 21:45 | disposition home or self-care (01) ==
LOC: UCEAST 19:35
DX: S06.0X9A Concussion with loss of consciousness of unspecified duration, initial encounter (principal); W01.0XXA Fall on same level from slipping, tripping and stumbling without subsequent striking against object, initial encounter; Y92.9 Unspecified place or not applicable; F17.290 Nicotine dependence, other tobacco product, uncomplicated; Z87.891 Personal history of nicotine dependence
CPT/HCPCS: 70450; 99212; A9270-GY; G0463

== ENCOUNTER 2018-11-16 10:38 | Emergency (ER) | payer MEDICAID, OTHER ==
[2018-11-16] MEDS ORDERED: Ondansetron INJ* 2 MG/ML VIAL ONE ×2 (10:54)
[2018-11-16] MEDS ORDERED: NS 0.9% 1000 ML** 1,000 ML IV ONE (10:58)
[2018-11-16] MEDS ORDERED: Ondansetron INJ* 2 MG/ML VIAL IV ONE (10:58)
[2018-11-16 11:40] LABS: ABS Basophils 0 10^3/ul (0-0.2); ABS Eosinophils 0 10^3/ul (0-0.6); ABS Lymphocytes 0.7 10^3/ul (1.0-4.8); ABS Monocytes 0.9 10^3/ul (0-0.8); ABS Neutrophils 19.8 10^3/ul (1.5-7.7); ABS Nucleated RBC 0 10^3/ul; Eosinophil % 0.1 %; Hematocrit 43 % (33-41); Hemoglobin 14.2 g/dL (12.0-16.0); Lymphocyte % 3.3 %; Mean Corpuscular HGB Conc 33 g/dL (31-36); Mean Corpuscular Hemoglobin 30 pg (27-31); Mean Corpuscular Volume 89 fL (80-97); Mean Platelet Volume 7.4 fL (7.4-10.4); Nucleated Red Blood Cells % 0.1; Platelet Count 218 10^3/uL (150-450); Red Cell Distribution Width 13 % (10.5-15); White Blood Count 21.4 10^3/uL (3.5-10.8)
[2018-11-16] MEDS ORDERED: NS 0.9% 1000 ML** 2,000 ML IV ONE (12:05)
[2018-11-16 12:08] LABS: Albumin 4.8 g/dL (3.2-5.2); Chloride 109 mmol/L (101-111); Magnesium 1.8 mg/dL (1.9-2.7); Potassium 4.1 mmol/L (3.5-5.0); Sodium 142 mmol/L (135-145)
--- NOTE | 2018-11-16 12:09 | ED ---
Nausea/Vomiting/Diarrhea HPI - HPI Summary HPI Summary: Patient is a 18-year-old female who identifies is a male presenting to the ED with nausea and vomiting 6 hours. He endorses Adderall and cocaine use along with vodka use last evening. He states he has mixed these drugs and alcohol before, however has never had this reaction. Denies any hematemesis. Denies any abdominal pain. Denies any urinary symptoms or back pain. Denies any headache, neck stiffness or photophobia. He states he is otherwise healthy. No chance of . Previous with a missed just 4 months ago with a subsequent D&C. He denies any fevers, sweats, chills. He has been attempting to drink water, however has been vomiting this up. He has had emesis 40+. - History of Current Complaint Chief Complaint: EDNauseaVomitDiarrh Stated Complaint: VOMITING PER PARTNER Time Seen by Provider: 11/16/18 10:50 Hx Obtained From: Patient ?: No Onset/Duration: Sudden Onset Timing: Constant Severity Initially: Moderate Severity Currently: Moderate Pain Intensity: 3 Pain Scale Used: 0-10 Numeric Aggravating Factor(s): Nothing Alleviating Factor(s): Nothing Vomiting Frequency: Every 15-60 minutes Nausea/Vomiting Duration: 0-12 hours Diarrhea Presence: No - Risk Factors Influenza Risk Factors: Negative - Allergies/Home Medications Allergies/Adverse Reactions: Allergies Allergy/AdvReac Type Severity Reaction Status Date / Time No Known Allergies Allergy Verified 11/12/18 10:17 PMH/Surg Hx/FS Hx/Imm Hx Previously Healthy: Yes Endocrine/Hematology History: Reports: Hx Anemia - ?-POSSIBLY BUT NEVER DIAGNOSED. REPORTS FAMILY HISTORY OF Denies: Hx Anticoagulant Therapy, Hx Blood Disorders Respiratory History: Denies: Hx Asthma History: Reports: Other Problems/Disorders - ovarian cysts Sensory History: Denies: Hx Contacts or Glasses, Hx Hearing Aid Opthamlomology History: Denies: Hx Contacts or Glasses Neurological History: Reports: Hx Headaches, Hx Migraine - HX OF -RARELY- TREATS WITH IBUPROFEN Psychiatric History: Reports: Hx Depression - HX OF - ON MEDICATION FOR, Hx Community Mental Health Tx - [facility] years ago Denies: Other Psychiatric Issues/Disorders - Surgical History Surgery Procedure, Year, and Place: D&C Hx Anesthesia Reactions: No - Immunization History Hx Pertussis Vaccination: No Immunizations Up to Date: Yes Infectious Disease History: No Infectious Disease History: Denies: Traveled Outside the [place] in Last 30 Days - Family History Known Family History: Positive: Other - migraines, Non-Contributory Family History: FHx of migraines. - Social History Occupation: Unemployed Lives: With Family Alcohol Use: Daily Alcohol Amount: not since Hx Substance Use: Yes Substance Use Type: Reports: Cocaine, Marijuana, Other Substance Use Comment - Amount & Last Used: daily Hx Tobacco Use: Yes - not currently Smoking Status (MU): Current Some Day Smoker Type: Cigarettes, eCigarettes Amount Used/How Often: 6 CIGARETTES PER DAY X OFF AND ON 1-2 YEARS Have You Smoked in the Last Year: Yes Review of Systems Constitutional: Negative Negative: Fever, Chills, Fatigue, Skin Diaphoresis Negative: Epistaxis, Dental Pain Negative: Palpitations, Chest Pain Positive: Abdominal Pain, Vomiting, Nausea. Negative: Diarrhea Genitourinary: Negative - is Positive: no symptoms reported, see HPI Negative: Arthralgia, Myalgia Skin: Negative Neurological: Negative All Other Systems Reviewed And Are Negative: Yes Physical Exam Triage Information Reviewed: Yes Vital Signs On Initial Exam: Initial Vitals Temp Pulse Resp BP Pulse Ox 97.2 F 95 24 164/82 97 11/16/18 10:45 11/16/18 10:45 11/16/18 10:45 11/16/18 10:45 11/16/18 10:45 Vital Signs Reviewed: Yes Appearance: Positive: Well-Appearing, Well-Nourished Skin: Positive: Warm, Skin Color Reflects Adequate Perfusion Head/Face: Positive: Normal Head/Face Inspection Eyes: Positive: EOMI, Conjunctiva Clear Neck: Positive: Supple, No Lymphadenopathy Respiratory/Lung Sounds: Positive: Clear to Auscultation, Breath Sounds Present Cardiovascular: Positive: RRR, Pulses are Symmetrical in both Upper and Lower Extremities Musculoskeletal: Positive: Strength/ROM Intact Neurological: Positive: Speech Normal Psychiatric: Positive: Affect/Mood Appropriate Diagnostics - Vital Signs Vital Signs Temp Pulse Resp BP Pulse Ox 11/16/18 10:45 97.2 F 95 24 164/82 97 - Laboratory Lab Results: Lab Results 11/16/18 Range/Units 11:29 WBC 21.4 H (3.5-10.8) 10^3/uL RBC 4.80 (3.70-4.87) 10^6 /uL Hgb 14.2 (12.0-16.0) g/dL Hct 43 H (33-41) % MCV 89 (80-97) fL MCH 30 (27-31) pg MCHC 33 (31-36) g/dL RDW 13 (10.5-15) % Plt Count 218 (150-450) 10^3/uL MPV 7.4 (7.4-10.4) fL Neut % (Auto) 92.3 % Lymph % (Auto) 3.3 % [place] % (Auto) 4.1 % Eos % (Auto) 0.1 % Baso % (Auto) 0.2 % Absolute Neuts (auto) 19.8 H (1.5-7.7) 10^3/ul Absolute Lymphs (auto) 0.7 L (1.0-4.8) 10^3/ul Absolute Monos (auto) 0.9 H (0-0.8) 10^3/ul Absolute Eos (auto) 0 (0-0.6) 10^3/ul Absolute Basos (auto) 0 (0-0.2) 10^3/ul Absolute Nucleated RBC 0 10^3/ul Nucleated RBC % 0.1 Result Diagrams: 11/16/18 13:23 11/16/18 13:23 Lab Statement: Any lab studies that have been ordered have been reviewed, and results considered in the medical decision making process. Naus/Vom/Diarrhea Course/Dx - Course Course Of Treatment: During the course of treatment, the patient's evaluated for nausea and vomiting after Adderall, cocaine and alcohol use last night. Patient identifies as a male. Denies any abdominal pain at this time. Denies any urinary symptoms or back pain. On arrival, patient is given 4 mg Zofran and 3 L fluids. He is noted to have a 21,000 WBC and 6.8 lactic. Other vital signs are stable. After 3 L fluids and 4 mg Zofran, patient states he is feeling improved. He is currently eating and drinking in the ED and denies any discomfort, nausea, vomiting, abdominal pain. He states he feels well and would like to go home. Repeat labs show a decreased to the lactic acid of 4.0, carbon dioxide increased to 13 and WBC count reduced 18. Patient continues to be encouraged plenty of fluids and rest today he has a follow-up tomorrow with [facility]. He will also be given Zofran for nausea. - Differential Dx/Diagnosis Differential Diagnoses - Female: Other - Metabolic acidosis, nausea and vomiting , chemical toxicity, cocaine use Provider Diagnosis: Nausea and vomiting, Metabolic acidosis due to ingestion of drugs or chemicals Condition At Discharge: Stable Discharge - Sign-Out/Discharge Documenting (check all that apply): Patient Departure Patient Received Moderate/Deep Sedation with Procedure: No - Discharge Plan Condition: Stable Disposition: HOME Prescriptions: Ondansetron ODT TAB* [Zofran 4 MG Odt TAB*] 4 mg PO Q6H PRN #12 tab.odt MDD 4 PRN Reason: Nausea Patient Education Materials: Acute Nausea and Vomiting (ED) Referrals: [facility] [Outside] - 11/17/18 1:40 pm Additional Instructions: Drink plenty of fluids today Please follow-up with your PCP as scheduled Zofran as needed for any nausea and vomiting - Billing Disposition and Condition Condition: STABLE Disposition: Home
[2018-11-16 12:10] LABS: HCG Pregnancy < 0.60 mIU/mL
[2018-11-16 12:15] LABS: ALT 22 U/L (7-52); AST 41 U/L (13-39); Albumin/Globulin Ratio 1.7 (1-3); Alkaline Phosphatase 68 U/L (34-104); BUN/Creatinine Ratio 22.2 (8-20); Blood Urea Nitrogen 16 mg/dL (6-24); C Reactive Protein < 1.00 mg/L (<8.01); EGFR Non-African American 103.3 (>60); Globulin 2.8 g/dL (2-4); Glucose 65 mg/dL (70-100); Total Protein 7.6 g/dL (6.4-8.9)
[2018-11-16 12:17] LABS: Anion Gap 21 mmol/L (2-11); CO2 Carbon Dioxide 12 mmol/L (22-32)
[2018-11-16 13:31] LABS: ABS Basophils 0.1 10^3/ul (0-0.2); ABS Eosinophils 0 10^3/ul (0-0.6); ABS Lymphocytes 0.7 10^3/ul (1.0-4.8); ABS Monocytes 0.9 10^3/ul (0-0.8); ABS Nucleated RBC 0 10^3/ul; Eosinophil % 0 %; Hematocrit 38 % (33-41); Hemoglobin 12.3 g/dL (12.0-16.0); Lymphocyte % 3.7 %; Mean Corpuscular HGB Conc 33 g/dL (31-36); Mean Corpuscular Hemoglobin 29 pg (27-31); Mean Corpuscular Volume 89 fL (80-97); Nucleated Red Blood Cells % 0; Platelet Count 189 10^3/uL (150-450); Red Blood Count 4.24 10^6 /uL (3.70-4.87); Red Cell Distribution Width 13 % (10.5-15); White Blood Count 18.6 10^3/uL (3.5-10.8)
[2018-11-16 13:52] LABS: Albumin/Globulin Ratio 1.7 (1-3); BUN/Creatinine Ratio 23.7 (8-20); EGFR African American 157.2 (>60); EGFR Non-African American 129.9 (>60); Globulin 2.3 g/dL (2-4); Potassium 4.2 mmol/L (3.5-5.0); Total Bilirubin 0.4 mg/dL (0.2-1.0); Total Protein 6.3 g/dL (6.4-8.9)
[2018-11-16 14:18] VITALS: BP 109/59
== END 2018-11-16 14:16 | disposition home or self-care (01) ==
LOC: ED 10:38
DX: E87.2 Acidosis (principal); T50.905A Adverse effect of unspecified drugs, medicaments and biological substances, initial encounter; R11.2 Nausea with vomiting, unspecified; F41.9 Anxiety disorder, unspecified; Z79.899 Other long term (current) drug therapy; F17.210 Nicotine dependence, cigarettes, uncomplicated
CPT/HCPCS: 36415; 80053; 83605; 83690; 83735; 84702; 85025; 86140; 96361; 96374; 99282; J2405

== ENCOUNTER 2018-11-20 14:31 | Emergency (ER) | payer MEDICAID ==
[2018-11-20 14:51] VITALS: BP 122/67
--- NOTE | 2018-11-20 15:19 | UC ---
Throat Pain/Nasal Paolo HPI - HPI Summary HPI Summary: Sore throat and fever over the past 2 days. Partner has strep throat. - History of Current Complaint Chief Complaint: UCGeneralIllness Stated Complaint: SORE THROAT Time Seen by Provider: 11/20/18 14:36 Hx Obtained From: Patient Hx Last Menstrual Period: 10/25/2018 ?: No Onset/Duration: Gradual Onset Severity: Mild Pain Intensity: 6 Cough: None Associated Signs & Symptoms: Positive: Negative - Epiglottits Risk Factors Epiglottis Risk Factors: Negative - Allergies/Home Medications Allergies/Adverse Reactions: Allergies Allergy/AdvReac Type Severity Reaction Status Date / Time No Known Allergies Allergy Verified 11/12/18 10:17 PMH/Surg Hx/FS Hx/Imm Hx Previously Healthy: Yes Other History Of: Negative For: Anticoagulant Therapy - Surgical History Surgical History: None Surgery Procedure, Year, and Place: D&C - Family History Known Family History: Positive: Other - migraines, Non-Contributory Family History: FHx of migraines. - Social History Alcohol Use: Daily Alcohol Amount: not since Substance Use Type: Cocaine, Marijuana, Other Substance Use Comment - Amount & Last Used: daily Smoking Status (MU): Never Smoked Tobacco Type: Cigarettes, eCigarettes Amount Used/How Often: 6 CIGARETTES PER DAY X OFF AND ON 1-2 YEARS Have You Smoked in the Last Year: Yes When Did the Patient Quit Smoking/Using Tobacco: 04/2018-NOW JUST E-CIGARETTE - Immunization History Most Recent Influenza Vaccination: has not received in the past Most Recent Pneumonia Vaccination: n/a Review of Systems All Other Systems Reviewed And Are Negative: Yes Constitutional: Positive: Fever ENT: Positive: Sore Throat Is Patient Immunocompromised?: No Physical Exam Triage Information Reviewed: Yes Appearance: Well-Appearing, No Pain Distress, Well-Nourished Vital Signs: Initial Vital Signs Temp 97.6 F 11/20/18 14:40 Pulse 92 11/20/18 14:40 Resp 16 11/20/18 14:40 BP 122/67 11/20/18 14:40 Pulse Ox 99 11/20/18 14:40 Vital Signs Reviewed: Yes Eye Exam: Normal ENT: Positive: Pharyngeal erythema, TMs normal, Tonsillar swelling, Uvula midline. Negative: Tonsillar exudate, Trismus, Muffled voice, Hoarse voice Neck: Positive: Supple, Nontender, Enlarged Nodes @ - Mild bilateral tonsillar lymph node enlargement. Respiratory: Positive: Lungs clear, Normal breath sounds, No respiratory distress, No accessory muscle use Cardiovascular: Positive: RRR, No Murmur, Pulses Normal, Brisk Capillary Refill Abdomen Description: Positive: Nontender, No Organomegaly, Soft Bowel Sounds: Positive: Present Musculoskeletal Exam: Normal Neurological Exam: Normal Psychological Exam: Normal Skin Exam: Normal Throat Pain/Nasal Course/Dx - Course Course Of Treatment: Rapid strep test positive - Differential Dx/Diagnosis Provider Diagnosis: Strep pharyngitis Discharge - Sign-Out/Discharge Documenting (check all that apply): Patient Departure All imaging exams completed and their final reports reviewed: No Studies - Discharge Plan Condition: Good Disposition: HOME Prescriptions: Amoxicillin PO (*) [Amoxicillin 875 MG (*)] 875 mg PO BID 10 Days #20 tab Patient Education Materials: Strep Throat (DC) Forms: *Work Release [facility]errals: [facility] [Outside] No Primary Care Phys,NOPCP [Primary Care Provider] - Additional Instructions: Increase fluids, change your toothbrush in 24 hours, Tylenol every 4 hours or Motrin every 6-8 hours as needed for fever. Follow-up with your primary care provider in 3 or 4 days if no improvement. - Billing Disposition and Condition Condition: GOOD Disposition: Home
== END 2018-11-20 15:15 | disposition home or self-care (01) ==
LOC: UCEAST 14:31
DX: J02.0 Streptococcal pharyngitis (principal); F17.290 Nicotine dependence, other tobacco product, uncomplicated
CPT/HCPCS: 87651; 99212; G0463

== ENCOUNTER 2018-11-26 12:34 | Emergency (ER) | payer MEDICAID ==
[2018-11-26 13:11] VITALS: BP 93/54
--- NOTE | 2018-11-26 13:24 | ED ---
Throat Pain/Nasal Congestion - HPI Summary HPI Summary: 18-year-old female who identified as male presents with right eye irritation for the past couple days. States he was diagnosed with strep on Friday. He has been taken antibiotics. Friend was diagnosed with idalia. He states today 's been having irritation to the left eye. No change in vision. He states has been having pus drainage to right eye. Never had this before. Doesn't wear glasses or contacts. - History of Current Complaint Chief Complaint: UCEye Time Seen by Provider: 11/26/18 13:15 - Allergies/Home Medications Allergies/Adverse Reactions: Allergies Allergy/AdvReac Type Severity Reaction Status Date / Time No Known Allergies Allergy Verified 11/26/18 13:12 PMH/Surg Hx/FS Hx/Imm Hx Endocrine/Hematology History: Reports: Hx Anemia - ?-POSSIBLY BUT NEVER DIAGNOSED. REPORTS FAMILY HISTORY OF Denies: Hx Anticoagulant Therapy, Hx Blood Disorders, Hx Diabetes Cardiovascular History: Denies: Hx Hypertension Respiratory History: Denies: Hx Asthma History: Reports: Other Problems/Disorders - ovarian cysts Sensory History: Denies: Hx Contacts or Glasses, Hx Hearing Aid Opthamlomology History: Denies: Hx Contacts or Glasses Neurological History: Reports: Hx Headaches, Hx Migraine - HX OF -RARELY- TREATS WITH IBUPROFEN Psychiatric History: Reports: Hx Depression - HX OF - ON MEDICATION FOR, Hx Community Mental Health Tx - [facility] Denies: Other Psychiatric Issues/Disorders - Surgical History Surgery Procedure, Year, and Place: D&C Hx Anesthesia Reactions: No Infectious Disease History: No Infectious Disease History: Denies: Traveled Outside the [place] in Last 30 Days - Family History Known Family History: Positive: Other - migraines, Non-Contributory Family History: FHx of migraines. - Social History Alcohol Use: Occasionally Alcohol Amount: not since Hx Substance Use: Yes Substance Use Type: Reports: Cocaine, Marijuana, Other Substance Use Comment - Amount & Last Used: daily Hx Tobacco Use: Yes - not currently Smoking Status (MU): Never Smoked Tobacco Type: Cigarettes, eCigarettes Amount Used/How Often: 6 CIGARETTES PER DAY X OFF AND ON 1-2 YEARS Have You Smoked in the Last Year: Yes Review of Systems Negative: Fever Positive: Drainage, Erythema Negative: Chest Pain Negative: Shortness Of Breath All Other Systems Reviewed And Are Negative: Yes Physical Exam Triage Information Reviewed: Yes Vital Signs On Initial Exam: Initial Vitals Temp Pulse Resp BP Pulse Ox 98 F 70 17 93/54 100 11/26/18 13:10 11/26/18 13:10 11/26/18 13:10 11/26/18 13:10 11/26/18 13:10 Vital Signs Reviewed: Yes Appearance: Positive: Well-Appearing Skin: Positive: Warm, Dry Head/Face: Positive: Normal Head/Face Inspection Eyes: Positive: Normal, EOMI, ISIDRA, Conjunctiva Inflammed - right ENT: Positive: Normal ENT inspection, Pharynx normal, TMs normal Respiratory/Lung Sounds: Positive: Clear to Auscultation, Breath Sounds Present Cardiovascular: Positive: Normal, RRR Musculoskeletal: Positive: Normal Neurological: Positive: Normal Psychiatric: Positive: Normal Diagnostics - Vital Signs Vital Signs Temp Pulse Resp BP Pulse Ox 11/26/18 13:10 98 F 70 17 93/54 100 - Laboratory Lab Statement: Any lab studies that have been ordered have been reviewed, and results considered in the medical decision making process. EENT Course/Dx - Course Course Of Treatment: 18-year-old female who identified as male presents with right eye irritation for the past couple days. States he was diagnosed with strep on Friday. He has been taken antibiotics. Friend was diagnosed with pinkeye. He states today's been having irritation to the left eye. No change in vision. He states has been having pus drainage to right eye. Never had this before. Doesn't wear glasses or contacts. On exam has injected conjunctiva of the right eye. Watery drainage noted. Will treat as conjunctivitis with Polytrim. Patient understands agrees with plan. - Differential Diagnoses Differential Diagnoses: Conjunctivitis, Corneal Abrasion, URI/Bronchitis - Diagnoses Provider Diagnoses: Conjunctivitis Discharge - Sign-Out/Discharge Documenting (check all that apply): Patient Departure All imaging exams completed and their final reports reviewed: No Studies - Discharge Plan Condition: Good Disposition: HOME Prescriptions: Polymyx/Trimethoprim OPTH* [Polytrim OPHTH*] 1 drop RIGHT EYE QID #1 btl Patient Education Materials: Conjunctivitis (ED) Referrals: Brenden Wells MD [Medical Doctor] - [facility] [Outside] Additional Instructions: Place 1 drop in eye four times a day for 7 days Wash hands after touching eye Follow up with ophthalmology if no improvement Establish care with primary Return to ED if develop any new or worsening symptoms - Billing Disposition and Condition Condition: GOOD Disposition: Home
== END 2018-11-26 13:40 | disposition home or self-care (01) ==
LOC: UCEAST 12:34
DX: H10.31 Unspecified acute conjunctivitis, right eye (principal); F32.9 Major depressive disorder, single episode, unspecified; F17.210 Nicotine dependence, cigarettes, uncomplicated
CPT/HCPCS: 99212; G0463

== ENCOUNTER 2019-02-25 11:28 | Emergency (ER) | payer MEDICAID, OTHER ==
[2019-02-25 11:36] VITALS: BP 100/57
--- OUTSIDE RECORDS SUMMARY | 2019-02-25 11:45 | XMS REPORT | Continuity of Care Document ---
:2000 External Reference #:[id number] Author Name Wade Cari Care Team Providers Name Role Phone [facility] Primary Care Physician Unavailable Payers Date Identification Numbers Payment Provider Subscriber Policy Number: [id number] Clifton Nava PayID: [id number] [address] [place] [address] Policy Number: [id number] Medicaid Wesley Nava Group Name: 1 1 [address] PayID: [id number] [place] [address] Problems Active Problems Provider Date Major depressive disorder, single episode, Fredy Colby MD Onset: 02/02/2019 unspecified Insomnia Fredy Colby MD Onset: 02/02/2019 Generalized anxiety disorder Fredy Colby MD Onset: 02/02/2019 Social History Type Date Description Comments Sex Female Tobacco Use Reviewed: 09/22/18 Patient is a current smoker, smokes E Cigarette every day Smoking Status Reviewed: 02/02/19 Patient is a current smoker, smokes E Cigarette every day Allergies, Adverse Reactions, Alerts Description No Known Drug Allergies Medications Active Medications SIG Qnty Indications Ordering Provider Date Mirtazapine take 1 tab each 30tabs F32.9 Fredy Colby MD 02/02/2019 15mg night Tablets Buspirone HCL take 1 tablet by 60tabs F41.1 Fredy Colby MD 02/02/2019 10mg mouth twice a Tablets day Fluoxetine HCL (PMDD) 1 by mouth every 30tabs F32.9 Fredy Colby MD 2018 day 20mg Tablets History Medications No Active Medications Unknown 02/02/2019 - 02/02/2019 Prozac 1 by mouth every day Unknown - 10/05/2018 20mg Capsules Vital Signs Date Vital Result Comment 02/02/2019 4:11pm Height 68 inches 5'8" Weight 135.25 lb Heart Rate 92 /min BP Systolic 112 mmHg BP Diastolic 68 mmHg Body Temperature 99.1 F O2 % BldC Oximetry 97 % BMI (Body Mass Index) 20.6 kg/m2 11/11/2018 3:32pm Weight 140.00 lb Heart Rate 64 /min BP Systolic 100 mmHg BP Diastolic 66 mmHg Respiratory Rate 16 /min Body Temperature 97.3 F Pain Level 0 09/22/2018 3:51pm Height 68 inches 5'8" Weight 146.50 lb Heart Rate 76 /min BP Systolic Sitting 100 mmHg reg adult cuff left arm BP Diastolic Sitting 70 mmHg reg adult cuff left arm Respiratory Rate 16 /min O2 % BldC Oximetry 99 % at rest on room air BMI (Body Mass Index) 22.3 kg/m2 Encounters Type Date Location Provider Dx Diagnosis Office Visit 11/11/2018 DO Not Use Care Fredy Colby MD F32.9 Major depressive 3:00p Connections disorder, single [facility] episode, unspecified Office Visit 09/22/2018 DO Not Use Care Ramila Schroeder F32.9 Major depressive 3:20p Connections DO disorder, single [facility] episode, unspecified Plan of Treatment Future Appointment(s):04/07/2019 4:00 pm - Fredy Colby MD at [facility] Internal Medicine - [address]/02/2019 - Fredy Colby MDF41.1 Generalized anxiety disorderNew Medication:Buspirone HCL 10 mg - take 1 tablet by mouth twice a dayFollow up:8 [id number] Insomnia, [id number] Major depressive disorder , single episode, unspecifiedNew Medication:Mirtazapine 15 mg - take 1 tab each night
--- OUTSIDE RECORDS SUMMARY | 2019-02-25 11:45 | XMS REPORT | Continuity of Care Document ---
:2000 External Reference #:[id number] Author Name Wade Cari Care Team Providers Name Role Phone [facility] Primary Care Physician Unavailable Payers Date Identification Numbers Payment Provider Subscriber Policy Number: [id number] Clifton Nava PayID: [id number] [address] [place] [address] Policy Number: [id number] Medicaid Wesley Nava Group Name: 1 1 [address] PayID: [id number] [place] [address] Problems Active Problems Provider Date Major depressive [...] F32.9 Major depressive 3:00p Connections disorder, single [facility] episode, unspecified Office Visit 09/22/2018 DO Not Use Care Ramila Schroeder F32.9 Major depressive 3:20p Connections DO disorder, single [facility] episode, unspecified Plan of Treatment 02/02/2019 - Fredy Colby MDF41.1 Generalized anxiety disorderNew Medication: Buspirone HCL 10 mg - take 1 tablet by mouth twice a dayFollow up:8 [id number] Insomnia, [id number] Major depressive disorder, single episode, unspecifiedNew Medication:Mirtazapine 15 mg - take 1 tab each night
--- NOTE | 2019-02-25 11:51 | UC ---
Skin Complaint HPI - HPI Summary HPI Summary: 18 yo female presents with lesion to right leg. She tells me that about 4 days ago she noticed a small red bump to her right calf. Since that time the area has gotten larger and more firm. She was able to squeeze it and some clear/ yellowish pus came out. She works at a [employer] and is concerned for staph. Has not applied any OTC creams or taken anything OTC for symptoms. No hx of MRSA. Denies fever or chills. - History of Current Complaint Chief Complaint: UCSkin Time Seen by Provider: 02/25/19 11:46 Stated Complaint: RT LEG BITE Hx Obtained From: Patient Hx Last Menstrual Period: 10/25/2018 Onset/Duration: Gradual Onset Onset Severity: Mild Current Severity: Mild Pain Intensity: 4 Pain Scale Used: 0-10 Numeric - Allergy/Home Medications Allergies/Adverse Reactions: Allergies Allergy/AdvReac Type Severity Reaction Status Date / Time No Known Allergies Allergy Verified 02/25/19 11:36 Home Medications: Home Medications Mirtazapine TAB* [Remeron TAB*] 1 tab PO DAILY 02/25/19 [History Confirmed 02/25] busPIRone TAB* [Buspar TAB *] 15 mg PO BID 02/25/19 [History Confirmed 02/25/19] PMH/Surg Hx/FS Hx/Imm Hx Psychological History: Anxiety, Depression, Bipolar Disorder Other History Of: Negative For: Anticoagulant Therapy - Surgical History Surgical History: Yes Surgery Procedure, Year, and Place: D&C,wisdom teeth ,[facility] - Family History Known Family History: Positive: Other - migraines, Non-Contributory Family History: FHx of migraines. - Social History Occupation: Employed Full-time Lives: With Family Alcohol Use: Occasionally Alcohol Amount: not since Substance Use Type: Marijuana, Other Substance Use Comment - Amount & Last Used: daily Smoking Status (MU): Never Smoked Tobacco Type: Cigarettes, eCigarettes Amount Used/How Often: 6 CIGARETTES PER DAY X OFF AND ON 1-2 YEARS Have You Smoked in the Last Year: Yes When Did the Patient Quit Smoking/Using Tobacco: 04/2018-NOW JUST E-CIGARETTE - Immunization History Most Recent Influenza Vaccination: has not received in the past Most Recent Pneumonia Vaccination: n/a Review of Systems All Other Systems Reviewed And Are Negative: Yes Constitutional: Positive: Negative Skin: Positive: Other - red bump right leg Respiratory: Positive: Negative Cardiovascular: Positive: Negative Neurovascular: Positive: Negative Neurological: Positive: Negative Psychological: Positive: Negative Physical Exam - Summary Physical Exam Summary: GENERAL: NAD. WDWN. No pain distress. SKIN: RIGHT CALF: 1.0cm area of mild induration and erythema and edema. Mild TTP. No active drainage. NECK: Supple. Nontender. No lymphadenopathy. CHEST: No accessory muscle use. Breathing comfortably and in no distress. CV: Pulses intact. Cap refill <2seconds NEURO: Alert. PSYCH: Age appropriate behavior. Triage Information Reviewed: Yes Vital Signs: Initial Vital Signs Temp 98 F 02/25/19 11:34 Pulse 72 02/25/19 11:34 Resp 16 02/25/19 11:34 BP 100/57 02/25/19 11:34 Pulse Ox 100 02/25/19 11:34 Vital Signs Reviewed: Yes Course/Dx - Course Course Of Treatment: Suspect abscess/folliculitis. Squeezing the area was able to express thin yellowish liquid and a culture was obtained. Will place her on keflex. - Diagnoses Provider Diagnosis: Abscess of right leg Discharge - Sign-Out/Discharge Documenting (check all that apply): Patient Departure All imaging exams completed and their final reports reviewed: No Studies - Discharge Plan Condition: Stable Disposition: HOME Prescriptions: Cephalexin CAP* [Keflex CAP*] 500 mg PO BID #14 cap Patient Education Materials: Abscess (ED) Referrals: No Primary Care Phys,NOPCP [Primary Care Provider] - Additional Instructions: If you develop a fever, shortness of breath, chest pain, new or worsening symptoms - please call your PCP or go to the ED immediately. Keep the area covered until well healed. Change the band-aid daily - Billing Disposition and Condition Condition: STABLE Disposition: Home
== END 2019-02-25 11:57 | disposition home or self-care (01) ==
LOC: UCEAST 11:28
DX: L02.415 Cutaneous abscess of right lower limb (principal); F41.9 Anxiety disorder, unspecified; F32.9 Major depressive disorder, single episode, unspecified; F31.9 Bipolar disorder, unspecified; Z87.891 Personal history of nicotine dependence
CPT/HCPCS: 87070; 87205; 99212; G0463

== ENCOUNTER 2022-01-27 16:24 | Inpatient (IN) ==
[2022-01-27] MEDS ORDERED: Buffered Lidocaine 1% SYRIN 1 ml INTRADERM ONE (18:02)
[2022-01-27] MEDS ORDERED: Lactated Ringers 1000 ml BAG 1,000 ML IV ONE (18:02)
[2022-01-27] MEDS ORDERED: Penicillin G Potassium IV 5,000,000 UNITS in NS 0.9% 100 ml BAG 100 ML IVPB ONE (18:30)
[2022-01-27] MEDS ORDERED: Ondansetron 4 mg VIAL 2 MG/ML 2 ml VIAL ONE (18:44)
[2022-01-27] MEDS: Ondansetron 4 mg VIAL 2 MG/ML 2 ml VIAL IV PRN (18:47)
[2022-01-27 18:51] LABS: ABS Lymphocytes 1.4 10^3/ul (1.0-4.8); ABS Monocytes 0.8 10^3/ul (0-0.8); ABS Neutrophils 14.1 10^3/ul (1.5-7.7); Hematocrit 35 % (35-47); Hemoglobin 11.3 g/dL (12.0-16.0); Lymphocyte % 8.3 %; Mean Corpuscular HGB Conc 33 g/dL (31-36); Mean Corpuscular Hemoglobin 28 pg (27-31); Mean Corpuscular Volume 86 fL (80-97); Mean Platelet Volume 6.5 fL (7.4-10.4); Platelet Count 343 10^3/uL (150-450); Red Blood Count 4.01 10^6 /uL (3.70-4.87); Red Cell Distribution Width 13 % (10-15); White Blood Count 16.4 10^3/uL (3.5-10.8)
[2022-01-27 19:25] LABS: Urine Benzodiazepine Screen None Detected (None Detect); Urine Cannabinoids Screen Presumptive Positive (None Detect); Urine Opiates Screen None Detected (None Detect)
[2022-01-27] MEDS ORDERED: Lidocaine 1.5% EPI 1:200,000 30 ML SDV ONE (22:22)
[2022-01-27] MEDS ORDERED: OBEPIDURAL (200 ML) 200 ML EPIDURAL ONE (22:25)
[2022-01-27] MEDS: Penicillin G Potassium IV 3,000,000 UNITS in NS 0.9% 100 ml BAG 100 ML IVPB SCH (22:59)
[2022-01-27] MEDS: Lactated Ringers 1000 ml BAG 1,000 ML IV SCH (22:59)
[2022-01-28 00:42] LABS: Urine Appearance Clear; Urine Bilirubin Negative (Negative); Urine Blood 1+ (Negative); Urine Color Yellow; Urine Glucose Negative (Negative); Urine Ketones 2+ (Negative); Urine Nitrite Negative (Negative); Urine Protein 1+(30 mg/dL) (Negative); Urine Specific Gravity 1.026 (1.002-1.030); Urine Urobilinogen Negative (Negative)
[2022-01-28 00:48] LABS: Urine Bacteria Absent (Absent); Urine Red Blood Cell 3+(>10/hpf) (Absent); Urine Squamous Epithelial Cell Present (Absent); Urine White Blood Cell Trace(0-5/hpf) (Absent)
[2022-01-28] MEDS ORDERED: Phenylephrine 40 mcg/mL 10mL (400mcg) SYRINGE ONE (02:28)
[2022-01-28] MEDS: Penicillin G Potassium IV 3,000,000 UNITS in NS 0.9% 100 ml BAG 100 ML IVPB SCH ×2 (03:03→07:15)
[2022-01-28] MEDS: Ondansetron 4 mg VIAL 2 MG/ML 2 ml VIAL IV PRN (07:00)
[2022-01-28] MEDS: Lactated Ringers 1000 ml BAG 1,000 ML IV SCH (08:34)
[2022-01-28] MEDS ORDERED: Oxytocin in LR 20 UNITS/1,000 ML BAG IVPB ONE (09:13)
[2022-01-28] MEDS ORDERED: RHO D Immune Globulin (HUMAN) 300 MCG = 1,500 I.U. INJ IM PRN (11:05)
[2022-01-28] MEDS ORDERED: Dibucaine 1% OINT 28.35 GM TUBE PR PRN (11:05)
[2022-01-28] MEDS ORDERED: Witch Hazel PAD JAR TOPICAL PRN (11:05)
[2022-01-28] MEDS ORDERED: Phenylephrine 40 mcg/mL 10mL (400mcg) SYRINGE IV PUSH PRN ×2 (11:23)
[2022-01-28] MEDS ORDERED: Lactated Ringers 1000 ml BAG 1,000 ML IV ONE (11:23)
[2022-01-28] MEDS ORDERED: Sodium Citrate/Citric Acid LIQ 15 ML UDC PO PRN (11:23)
[2022-01-28] MEDS ORDERED: OBEPIDURAL (200 ML) 200 ML EPIDURAL SCH (12:00)
[2022-01-28] MEDS ORDERED: Lactated Ringers 1000 ml BAG 1,000 ML IV SCH ×2 (12:00)
[2022-01-28] MEDS ORDERED: Oxytocin in LR 20 UNITS/1,000 ML BAG IVPB SCH (12:00)
[2022-01-29 06:29] LABS: ABS Eosinophils 0.1 10^3/ul (0-0.6); ABS Lymphocytes 2.8 10^3/ul (1.0-4.8); ABS Monocytes 1.4 10^3/ul (0-0.8); ABS Neutrophils 13.4 10^3/ul (1.5-7.7); Eosinophil % 0.3 %; Hematocrit 26 % (35-47); Hemoglobin 8.5 g/dL (12.0-16.0); Lymphocyte % 15.7 %; Mean Corpuscular HGB Conc 33 g/dL (31-36); Mean Corpuscular Hemoglobin 29 pg (27-31); Mean Corpuscular Volume 87 fL (80-97); Mean Platelet Volume 6.5 fL (7.4-10.4); Platelet Count 264 10^3/uL (150-450); Red Blood Count 2.95 10^6 /uL (3.70-4.87); Red Cell Distribution Width 13 % (10-15); White Blood Count 17.6 10^3/uL (3.5-10.8)
[2022-01-30 10:00] VITALS: BP 109/76
[2022-01-31 11:52] LABS: Varicella IgG Antibody Index 0.6; Varicella-Zoster IgG Antibody Negative
== END 2022-01-30 14:15 | disposition home or self-care (01) | DRG 560 ==
LOC: MCHOBOUT 16:24 → MCHOB 17:45
PROVIDERS: ADMIT Midwife; ATTEND Midwife

== ENCOUNTER 2023-06-29 01:26 | Inpatient (IN) ==
[2023-06-29] MEDS ORDERED: Lactated Ringers 1000 ml BAG 1,000 ML IV ONE (03:34)
[2023-06-29] MEDS ORDERED: Lidocaine 1% VIAL 10 MG/ML 30 ML VIAL INJ PRN (03:34)
[2023-06-29] MEDS ORDERED: Buffered Lidocaine 1% SYRIN 1 ml INTRADERM ONE (03:34)
[2023-06-29] MEDS ORDERED: Lactated Ringers 1000 ml BAG 1,000 ML IV SCH (04:00)
[2023-06-29 04:21] LABS: ABS Lymphocytes 2.5 10^3/uL (1.0-4.8); ABS Monocytes 0.9 10^3/uL (0.0-0.9); ABS Neutrophils 8.6 10^3/uL (1.5-7.6); Eosinophil % 0.4 %; Hematocrit 33.4 % (35-45); Hemoglobin 11.5 g/dL (11.5-14.3); Lymphocyte % 20.4 %; Mean Corpuscular Hemoglobin 29.5 pg (27-33); Mean Corpuscular Hgb Conc 34.6 g/dL (31-36); Mean Corpuscular Volume 85.2 fL (80-97); Mean Platelet Volume 7.1 fL (7.5-11.2); Platelet Count 297 10^3/uL (150-450); Red Blood Count 3.91 10^6/uL (3.63-4.92); Red Cell Distribution Width 12.8 % (12-17)
[2023-06-29] MEDS ORDERED: Oxytocin in LR 0 MILLI.UNIT/0 ML BAG IV ONE (04:46)
[2023-06-29 06:38] LABS: Urine Benzodiazepine Screen None Detected (None Detect); Urine Cannabinoids Screen Presumptive Positive (None Detect); Urine Opiates Screen None Detected (None Detect)
[2023-06-29] MEDS ORDERED: RHO D Immune Globulin (HUMAN) 300 MCG = 1,500 I.U. INJ IM PRN (07:14)
[2023-06-29] MEDS ORDERED: Witch Hazel PAD JAR TOPICAL PRN (07:14)
[2023-06-29] MEDS ORDERED: Dibucaine 1% OINT 28.35 GM TUBE PR PRN (07:14)
[2023-06-29] MEDS ORDERED: Glycerin ADULT 2.4 gm SUPP PR PRN (07:14)
[2023-06-29] MEDS ORDERED: Fluoxetine 40 mg CAP (NF) PO SCH (09:00)
[2023-06-30 08:08] LABS: ABS Basophils 0.1 10^3/uL (0.0-0.1); ABS Eosinophils 0.1 10^3/uL (0.0-0.5); ABS Lymphocytes 2.4 10^3/uL (1.0-4.8); ABS Monocytes 0.8 10^3/uL (0.0-0.9); ABS Neutrophils 9.1 10^3/uL (1.5-7.6); Eosinophil % 0.8 %; Hemoglobin 10.6 g/dL (11.5-14.3); Lymphocyte % 19.2 %; Mean Corpuscular Hemoglobin 29.2 pg (27-33); Mean Corpuscular Volume 85.8 fL (80-97); Platelet Count 285 10^3/uL (150-450); Red Blood Count 3.62 10^6/uL (3.63-4.92); White Blood Count 12.5 10^3/uL (3.8-11.8)
[2023-06-30 08:30] VITALS: BP 111/55
== END 2023-06-30 13:52 | disposition home or self-care (01) | DRG 560 ==
LOC: MCHOBOUT 01:26 → MCHOB 04:00
PROVIDERS: ADMIT Midwife; ATTEND Midwife